=== PATIENT | male | born 1985 | race African-American/Black ===

== ENCOUNTER 2017-04-14 23:41 | Emergency (ER) | payer BC, SELFPAY ==
[2017-04-15] MEDS ORDERED: Doxycycline 100 MG CAP ONE (00:12)
[2017-04-15] MEDS ORDERED: Ibuprofen 800 MG TAB ONE (00:12)
== END 2017-04-15 00:17 | disposition home or self-care (01) ==
LOC: NAV ERS 23:41
DX: L03.011 Cellulitis of right finger (principal); L02.511 Cutaneous abscess of right hand; E11.9 Type 2 diabetes mellitus without complications; Z79.899 Other long term (current) drug therapy; Z79.84 Long term (current) use of oral hypoglycemic drugs
CPT/HCPCS: 10060